=== PATIENT | female | born 1965 | race Two or more races ===

== ENCOUNTER 2020-02-08 12:28 | Inpatient (IN) | payer MEDICAID, OTHER ==
[~2020-02-08] VITALS: Ht 160 cm; Wt 93.6 kg
[~2020-02-08 12:28] MED LIST: BACL10TA PO; BENA20TA14 PO; TRAZ50TA2 PO
[2020-02-08] MEDS ORDERED: SODIUM CHLORIDE 0.9% 1,000 ML IV ONE ×2 (12:33)
[2020-02-08] MEDS ORDERED: DexAMETHasone SOD PHOS 10MG/1ML VIAL INJ IV ONE (12:45)
[2020-02-08] MEDS ORDERED: DOXYCYCLINE 100 MG TAB/CAP PO ONE (12:45)
[2020-02-08 14:10] LABS: Urine Bacteria FEW /hpf (None Seen); Urine Blood 1+ /uL (Negative); Urine Hyaline Cast MANY /lpf (0 - 2); Urine Mucus MODERATE (None Seen); Urine Specific Gravity 1.026 (1.001-1.035); Urine WBC 32 /hpf (0 - 5)
[2020-02-08] MEDS ORDERED: KETOROLAC TROMETH 30 MG/ML 1ML VIAL IV ONE (14:15)
[2020-02-08] MEDS ORDERED: ONDANSETRON HCL 4 MG/2 ML VIAL IV ONE (14:15)
[2020-02-08 15:06] LABS: Alanine Aminotransferase 35 U/L (13-56); Albumin 3.8 g/dL (3.4-5.0); Anion Gap 7 (5-15); Aspartate Aminotransferase 33 U/L (15-37); Blood Urea Nitrogen 13 mg/dL (7-18); Calcium 8.7 mg/dL (8.5-10.1); Carbon Dioxide 25 mmol/L (21-32); Chloride 109 mmol/L (98-107); GFR African American 95 mL/min; GFR Non-African American 78 mL/min; Glucose 83 mg/dL (74-106); Potassium 3.5 mmol/L (3.5-5.1); Sodium 141 mmol/L (136-145)
[2020-02-08 15:12] LABS: Alkaline Phosphatase 73 U/L (45-117); Bilirubin, Total 0.5 mg/dL (0.2-1.0); Total Protein 8.8 g/dL (6.4-8.2)
[2020-02-08 15:14] LABS: Basophils # (auto) 0 10 ^3/uL (0-0.2); CRP High Sensitivity 0.7 mg/dL (< 0.3); Eosinophils # (auto) 0.1 10 ^3/uL (0-0.8); Eosinophils % (auto) 1.4 % (0.0-7.0); Hematocrit 48.6 % (36.0-46.0); Hemoglobin 15.8 g/dL (12.2-16.2); Lymphocytes # (auto) 0.9 10 ^3/uL (0.4-5.4); Lymphocytes % (auto) 21.5 % (10.0-50.0); Mean Corpuscular Hemoglobin 28.4 pg (28.0-32.0); Mean Corpuscular Hgb Conc. 32.5 g/dL (32.0-36.0); Mean Corpuscular Volume 87.4 fL (80.0-100.0); Monocytes # (auto) 0.4 10 ^3/uL (0-1.3); Monocytes % (auto) 9.6 % (0.0-12.0); Neutrophils # (auto) 2.7 10 ^3/uL (1.6-8.6); Neutrophils % (auto) 67.5 % (37.0-80.0); Nucleated Red Blood Cells % 0.6 %; Platelet Count (auto) 92 10^3/uL (140-450); Red Blood Cells 5.56 10^6/uL (4.0-5.20)
[2020-02-08] MEDS ORDERED: cefTRIAXone 1GM/50ML D5W 50 ML IV ONE ×2 (15:15→15:16)
[2020-02-08 15:37] LABS: INR 1.18 (0.9-1.15); Partial Thromboplastin Time 23.4 sec (23.0-31.2)
[2020-02-08] MEDS ORDERED: TEMAZEPAM 15 MG CAP PO PRN (15:45)
[2020-02-08] MEDS ORDERED: NITROGLYCERIN 0.4 MG SL TAB SL PRN (15:45)
[2020-02-08] MEDS ORDERED: ACETAMINOPHEN 325 MG TAB PO PRN (15:45)
[2020-02-08] MEDS ORDERED: HYDROcodone-ACET 5/325MG TAB PO PRN (15:45)
[2020-02-08] MEDS ORDERED: DOCUSATE SOD 100 MG CAP PO PRN (15:45)
[2020-02-08] MEDS ORDERED: OME20T PO (17:27)
[2020-02-08 17:33] VITALS: BP 114/62
[2020-02-08] MEDS: ONDANSETRON HCL 4 MG/2 ML VIAL IV PRN ×2 (17:33→22:00)
[2020-02-08] MEDS: MORPHINE SULF INJ 2 MG/ML SYRINGE 1ML IV PRN ×2 (17:34→22:00)
[2020-02-08] MEDS ORDERED: CHOL20007 PO (18:23)
[2020-02-08] MEDS ORDERED: CALC-386 OR (18:24)
[2020-02-08] MEDS ORDERED: CYAN1SUB5 SL (18:24)
[2020-02-08] MEDS ORDERED: MULT-1018 PO (18:24)
[2020-02-08 20:01] LABS: Basophils # (auto) 0 10 ^3/uL (0-0.2); Basophils % (auto) 0.2 % (0.0-2.0); Eosinophils # (auto) 0 10 ^3/uL (0-0.8); Hematocrit 47.4 % (36.0-46.0); Hemoglobin 15.2 g/dL (12.2-16.2); Lymphocytes # (auto) 0.3 10 ^3/uL (0.4-5.4); Lymphocytes % (auto) 17.1 % (10.0-50.0); Mean Corpuscular Hemoglobin 28.1 pg (28.0-32.0); Mean Corpuscular Hgb Conc. 32.2 g/dL (32.0-36.0); Mean Corpuscular Volume 87.4 fL (80.0-100.0); Monocytes # (auto) 0 10 ^3/uL (0-1.3); Monocytes % (auto) 1.8 % (0.0-12.0); Neutrophils # (auto) 1.6 10 ^3/uL (1.6-8.6); Neutrophils % (auto) 80.9 % (37.0-80.0); Nucleated Red Blood Cells % 0.2 %; Platelet Count (auto) 68 10^3/uL (140-450); Red Blood Cells 5.42 10^6/uL (4.0-5.20); Red Cell Distribution Width 14.3 % (11.8-14.3)
[2020-02-08 20:03] LABS: Albumin 3.4 g/dL (3.4-5.0); Calcium 8.7 mg/dL (8.5-10.1)
[2020-02-08 20:07] LABS: BUN/Creatinine Ratio 20.6; Bilirubin, Total 0.4 mg/dL (0.2-1.0); CRP High Sensitivity 0.71 mg/dL (< 0.3); Total Protein 7.8 g/dL (6.4-8.2)
[2020-02-08 22:00] VITALS: BP 103/64
[2020-02-08] MEDS: BACLOFEN 10 MG TAB PO SCH (22:00)
[2020-02-08] MEDS: traZODone HCL 50 MG TAB PO SCH (22:00)
[2020-02-08] MEDS: DOXYCYCLINE 100 MG TAB/CAP PO SCH (22:22)
[2020-02-09] MEDS: MORPHINE SULF INJ 2 MG/ML SYRINGE 1ML IV PRN ×4 (04:32→21:34)
[2020-02-09] MEDS: ONDANSETRON HCL 4 MG/2 ML VIAL IV PRN ×5 (04:32→21:34)
[2020-02-09 04:42] VITALS: BP 113/76
[2020-02-09] MEDS: BACLOFEN 10 MG TAB PO SCH ×2 (06:00→14:00)
[2020-02-09] MEDS: PANTOPRAZOLE 40 MG TAB PO SCH (08:32)
[2020-02-09 09:00] VITALS: BP 116/72
[2020-02-09] MEDS ORDERED: cefTRIAXone W LIDOCAINE 1 GM IM IM SCH (10:00)
[2020-02-09] MEDS: DOXYCYCLINE 100 MG TAB/CAP PO SCH (10:00)
[2020-02-09] MEDS ORDERED: BENAZEPRIL HCL 10 MG TAB PO SCH (10:00)
[2020-02-09] MEDS ORDERED: ENOXAPARIN SOD 30 MG/0.3 ML SYRINGE SC SCH (10:00)
[2020-02-09] MEDS: CHOLECALCIFEROL (VITD3) 1,000UNIT=25mCg TAB PO SCH (10:04)
[2020-02-09] MEDS: cefTRIAXone 1GM/50ML D5W 50 ML IV SCH (10:04)
[2020-02-09] MEDS: ZINC SULFATE 220mg CAP or TAB PO SCH (10:04)
[2020-02-09 11:11] LABS: Basophils # (auto) 0 10 ^3/uL (0-0.2); Basophils % (auto) 0.3 % (0.0-2.0); Eosinophils # (auto) 0 10 ^3/uL (0-0.8); Eosinophils % (auto) 0.3 % (0.0-7.0); Hematocrit 45.3 % (36.0-46.0); Hemoglobin 14.4 g/dL (12.2-16.2); Lymphocytes # (auto) 0.9 10 ^3/uL (0.4-5.4); Lymphocytes % (auto) 40.2 % (10.0-50.0); Mean Corpuscular Hgb Conc. 31.9 g/dL (32.0-36.0); Mean Corpuscular Volume 87.7 fL (80.0-100.0); Monocytes # (auto) 0.3 10 ^3/uL (0-1.3); Monocytes % (auto) 11.6 % (0.0-12.0); Neutrophils # (auto) 1.1 10 ^3/uL (1.6-8.6); Neutrophils % (auto) 47.6 % (37.0-80.0); Nucleated Red Blood Cells % 0.4 %; Platelet Count (auto) 75 10^3/uL (140-450); Red Blood Cells 5.17 10^6/uL (4.0-5.20); Red Cell Distribution Width 14.4 % (11.8-14.3); White Blood Cell 2.2 10^3/uL (4.4-10.8)
[2020-02-09 11:20] LABS: Albumin 3.3 g/dL (3.4-5.0); Calcium 8.9 mg/dL (8.5-10.1); Magnesium 1.9 mg/dL (1.6-2.6); Potassium 3.8 mmol/L (3.5-5.1)
[2020-02-09 11:26] LABS: BUN/Creatinine Ratio 27.4; Bilirubin, Total 0.4 mg/dL (0.2-1.0); CRP High Sensitivity 0.75 mg/dL (< 0.3); Total Protein 7.5 g/dL (6.4-8.2)
[2020-02-09] MEDS ORDERED: ASCORBIC ACID 500 MG TAB PO ONE (12:30)
[2020-02-09] MEDS ORDERED: BUDESONIDE (INHALATION) 0.5 MG/2 ML NEB NEB ONE (12:30)
[2020-02-09 12:36] VITALS: BP 108/69
[2020-02-09] MEDS ORDERED: PATIENTS OWN MEDICATION (PULMICORT 360 MCG) IN ONE (12:45)
[2020-02-09] MEDS: BUDESONIDE (INHALATION) 180 MCG IH IN SCH ×2 (14:24→21:05)
[2020-02-09] MEDS: ALBUTEROL SULF HFA 90MCG INH 200DOSE IN SCH ×2 (14:24→21:04)
[2020-02-09 16:38] VITALS: BP 103/62
[2020-02-09 17:59] VITALS: BP 103/62
[2020-02-09] MEDS: traZODone HCL 50 MG TAB PO SCH (21:33)
[2020-02-09 22:00] VITALS: BP 118/81
[2020-02-09] MEDS ORDERED: PULMOCORT INH SCH (22:00)
[2020-02-09] MEDS ORDERED: BUDESONIDE (INHALATION) 0.5 MG/2 ML NEB NEB SCH (22:00)
[2020-02-10] MEDS: MORPHINE SULF INJ 2 MG/ML SYRINGE 1ML IV PRN ×4 (03:02→22:22)
[2020-02-10] MEDS: ONDANSETRON HCL 4 MG/2 ML VIAL IV PRN ×5 (03:02→22:22)
[2020-02-10 05:00] VITALS: BP 123/78
[2020-02-10 07:05] LABS: Basophils # (auto) 0 10 ^3/uL (0-0.2); Basophils % (auto) 0.6 % (0.0-2.0); Eosinophils # (auto) 0 10 ^3/uL (0-0.8); Eosinophils % (auto) 0.6 % (0.0-7.0); Hematocrit 43.6 % (36.0-46.0); Hemoglobin 14.1 g/dL (12.2-16.2); Lymphocytes # (auto) 1.3 10 ^3/uL (0.4-5.4); Lymphocytes % (auto) 46.4 % (10.0-50.0); Mean Corpuscular Hemoglobin 28.5 pg (28.0-32.0); Mean Corpuscular Hgb Conc. 32.5 g/dL (32.0-36.0); Mean Corpuscular Volume 87.7 fL (80.0-100.0); Monocytes # (auto) 0.2 10 ^3/uL (0-1.3); Monocytes % (auto) 8.4 % (0.0-12.0); Neutrophils # (auto) 1.2 10 ^3/uL (1.6-8.6); Nucleated Red Blood Cells % 0.6 %; Platelet Count (auto) 68 10^3/uL (140-450); Red Blood Cells 4.96 10^6/uL (4.0-5.20); Red Cell Distribution Width 14.6 % (11.8-14.3); White Blood Cell 2.8 10^3/uL (4.4-10.8)
[2020-02-10] MEDS: ALBUTEROL SULF HFA 90MCG INH 200DOSE IN SCH ×3 (07:14→22:06)
[2020-02-10] MEDS: BUDESONIDE (INHALATION) 180 MCG IH IN SCH ×2 (07:15→22:06)
[2020-02-10 07:20] LABS: Calcium 8.1 mg/dL (8.5-10.1); Potassium 3.8 mmol/L (3.5-5.1)
[2020-02-10 07:33] LABS: BUN/Creatinine Ratio 27.9
[2020-02-10] MEDS: PANTOPRAZOLE 40 MG TAB PO SCH (07:35)
[2020-02-10 09:00] VITALS: BP 112/69
[2020-02-10] MEDS: cefTRIAXone 1GM/50ML D5W 50 ML IV SCH (10:03)
[2020-02-10] MEDS: DexAMETHasone SOD PHOS 10MG/1ML VIAL INJ IV SCH (10:03)
[2020-02-10] MEDS: ASCORBIC ACID 500 MG TAB PO SCH (10:03)
[2020-02-10] MEDS: CHOLECALCIFEROL (VITD3) 1,000UNIT=25mCg TAB PO SCH (10:03)
[2020-02-10] MEDS: ZINC SULFATE 220mg CAP or TAB PO SCH (10:04)
[2020-02-10 12:00] VITALS: BP 122/70
[2020-02-10] MEDS ORDERED: KETOROLAC TROMETH 30 MG/ML 1ML VIAL IV ONE (12:00)
[2020-02-10 17:00] VITALS: BP 111/72
[2020-02-10 22:00] VITALS: BP 98/60
[2020-02-10] MEDS: traZODone HCL 50 MG TAB PO SCH (22:00)
[2020-02-11] MEDS: ONDANSETRON HCL 4 MG/2 ML VIAL IV PRN ×4 (03:57→18:12)
[2020-02-11] MEDS: MORPHINE SULF INJ 2 MG/ML SYRINGE 1ML IV PRN ×4 (03:57→18:12)
[2020-02-11 05:00] VITALS: BP 132/75
[2020-02-11] MEDS: ALBUTEROL SULF HFA 90MCG INH 200DOSE IN SCH ×4 (07:06→21:33)
[2020-02-11] MEDS: BUDESONIDE (INHALATION) 180 MCG IH IN SCH ×2 (07:06→21:33)
[2020-02-11 07:33] LABS: Basophils # (auto) 0 10 ^3/uL (0-0.2); Basophils % (auto) 0.1 % (0.0-2.0); Eosinophils # (auto) 0 10 ^3/uL (0-0.8); Hematocrit 41.3 % (36.0-46.0); Hemoglobin 13.6 g/dL (12.2-16.2); Lymphocytes # (auto) 0.8 10 ^3/uL (0.4-5.4); Lymphocytes % (auto) 21.9 % (10.0-50.0); Mean Corpuscular Hemoglobin 28.6 pg (28.0-32.0); Mean Corpuscular Volume 86.7 fL (80.0-100.0); Monocytes # (auto) 0.2 10 ^3/uL (0-1.3); Monocytes % (auto) 6.4 % (0.0-12.0); Neutrophils # (auto) 2.5 10 ^3/uL (1.6-8.6); Neutrophils % (auto) 71.6 % (37.0-80.0); Nucleated Red Blood Cells % 0.2 %; Platelet Count (auto) 67 10^3/uL (140-450); Red Blood Cells 4.76 10^6/uL (4.0-5.20); Red Cell Distribution Width 14.1 % (11.8-14.3); White Blood Cell 3.5 10^3/uL (4.4-10.8)
[2020-02-11] MEDS: cefTRIAXone 1GM/50ML D5W 50 ML IV SCH (08:53)
[2020-02-11 09:17] VITALS: BP 113/74
[2020-02-11] MEDS: ZINC SULFATE 220mg CAP or TAB PO SCH (09:35)
[2020-02-11] MEDS: PANTOPRAZOLE 40 MG TAB PO SCH (09:35)
[2020-02-11] MEDS: DexAMETHasone SOD PHOS 10MG/1ML VIAL INJ IV SCH (09:35)
[2020-02-11] MEDS: ASCORBIC ACID 500 MG TAB PO SCH (09:35)
[2020-02-11] MEDS: CHOLECALCIFEROL (VITD3) 1,000UNIT=25mCg TAB PO SCH (09:35)
[2020-02-11 13:19] VITALS: BP 118/76
[2020-02-11] MEDS ORDERED: PANTOPRAZOLE 40 MG/10 ML VIAL INJ IV ONE (14:30)
[2020-02-11] MEDS ORDERED: PHENAZOPYRIDINE HCL 100 MG TAB PO ONE (14:30)
[2020-02-11 16:58] VITALS: BP 105/69
[2020-02-11] MEDS: PHENAZOPYRIDINE HCL 100 MG TAB PO SCH (18:11)
[2020-02-11 20:00] VITALS: BP 102/53
[2020-02-11] MEDS: traZODone HCL 50 MG TAB PO SCH (21:46)
[2020-02-11 21:51] VITALS: BP 102/53
[2020-02-12 05:29] VITALS: BP 93/60
[2020-02-12 06:00] LABS: Basophils # (auto) 0 10 ^3/uL (0-0.2); Basophils % (auto) 0.1 % (0.0-2.0); Eosinophils # (auto) 0 10 ^3/uL (0-0.8); Hemoglobin 12.8 g/dL (12.2-16.2); Lymphocytes # (auto) 0.2 10 ^3/uL (0.4-5.4); Lymphocytes % (auto) 5.5 % (10.0-50.0); Mean Corpuscular Hgb Conc. 32.1 g/dL (32.0-36.0); Mean Corpuscular Volume 87.2 fL (80.0-100.0); Monocytes # (auto) 0.1 10 ^3/uL (0-1.3); Monocytes % (auto) 2.2 % (0.0-12.0); Neutrophils % (auto) 92.2 % (37.0-80.0); Nucleated Red Blood Cells % 0.1 %; Platelet Count (auto) 71 10^3/uL (140-450); Red Blood Cells 4.59 10^6/uL (4.0-5.20); Red Cell Distribution Width 14.2 % (11.8-14.3); White Blood Cell 3.3 10^3/uL (4.4-10.8)
[2020-02-12 06:18] LABS: Albumin 2.7 g/dL (3.4-5.0); Calcium 7.7 mg/dL (8.5-10.1); Potassium 3.6 mmol/L (3.5-5.1)
[2020-02-12 06:21] LABS: BUN/Creatinine Ratio 17.9; Bilirubin, Total 0.3 mg/dL (0.2-1.0); Total Protein 6.2 g/dL (6.4-8.2)
[2020-02-12] MEDS: BUDESONIDE (INHALATION) 180 MCG IH IN SCH ×2 (07:00→22:35)
[2020-02-12] MEDS: ALBUTEROL SULF HFA 90MCG INH 200DOSE IN SCH ×3 (07:00→22:35)
[2020-02-12 08:50] VITALS: BP 103/63
[2020-02-12] MEDS: PHENAZOPYRIDINE HCL 100 MG TAB PO SCH ×3 (08:50→17:35)
[2020-02-12] MEDS: cefTRIAXone 1GM/50ML D5W 50 ML IV SCH (08:51)
[2020-02-12] MEDS: DexAMETHasone SOD PHOS 10MG/1ML VIAL INJ IV SCH (08:52)
[2020-02-12] MEDS: PANTOPRAZOLE 40 MG/10 ML VIAL INJ IV SCH (08:53)
[2020-02-12] MEDS: ZINC SULFATE 220mg CAP or TAB PO SCH (08:54)
[2020-02-12] MEDS: CHOLECALCIFEROL (VITD3) 1,000UNIT=25mCg TAB PO SCH (08:54)
[2020-02-12] MEDS: ASCORBIC ACID 500 MG TAB PO SCH (08:54)
[2020-02-12] MEDS: MORPHINE SULF INJ 2 MG/ML SYRINGE 1ML IV PRN ×4 (08:58→21:30)
[2020-02-12] MEDS: ONDANSETRON HCL 4 MG/2 ML VIAL IV PRN ×4 (08:58→21:30)
[2020-02-12 13:00] VITALS: BP 123/65
[2020-02-12 16:55] VITALS: BP 107/71
[2020-02-12 20:22] VITALS: BP 107/71
[2020-02-12 21:45] VITALS: BP 113/69
[2020-02-12] MEDS: traZODone HCL 50 MG TAB PO SCH (22:00)
[2020-02-13] MEDS: ONDANSETRON HCL 4 MG/2 ML VIAL IV PRN ×4 (03:15→18:30)
[2020-02-13] MEDS: MORPHINE SULF INJ 2 MG/ML SYRINGE 1ML IV PRN ×2 (03:15→08:49)
[2020-02-13 05:00] VITALS: BP 126/77
[2020-02-13 06:21] LABS: Basophils # (auto) 0 10 ^3/uL (0-0.2); Basophils % (auto) 0.1 % (0.0-2.0); Eosinophils # (auto) 0 10 ^3/uL (0-0.8); Hemoglobin 14.3 g/dL (12.2-16.2); Monocytes # (auto) 0.2 10 ^3/uL (0-1.3)
[2020-02-13 06:23] LABS: Eosinophils % (auto) 0.1 % (0.0-7.0); Lymphocytes # (auto) 0.6 10 ^3/uL (0.4-5.4); Lymphocytes % (auto) 22.2 % (10.0-50.0); Mean Corpuscular Hemoglobin 28.5 pg (28.0-32.0); Mean Corpuscular Hgb Conc. 32.4 g/dL (32.0-36.0); Mean Corpuscular Volume 87.8 fL (80.0-100.0); Monocytes % (auto) 6.7 % (0.0-12.0); Neutrophils % (auto) 70.9 % (37.0-80.0); Nucleated Red Blood Cells % 0.2 %; Platelet Count (auto) 60 10^3/uL (140-450); Red Cell Distribution Width 14.7 % (11.8-14.3); White Blood Cell 2.8 10^3/uL (4.4-10.8)
[2020-02-13] MEDS: ALBUTEROL SULF HFA 90MCG INH 200DOSE IN SCH ×3 (06:41→22:35)
[2020-02-13] MEDS: BUDESONIDE (INHALATION) 180 MCG IH IN SCH ×2 (06:42→22:36)
[2020-02-13 06:47] LABS: Calcium 8.2 mg/dL (8.5-10.1); Chloride 110 mmol/L (98-107); Potassium 3.5 mmol/L (3.5-5.1); Sodium 141 mmol/L (136-145)
[2020-02-13 06:51] LABS: Anion Gap 7 (5-15); BUN/Creatinine Ratio 24.1; Blood Urea Nitrogen 13 mg/dL (7-18); Carbon Dioxide 24 mmol/L (21-32); GFR African American 151 mL/min; GFR Non-African American 125 mL/min; Glucose 79 mg/dL (74-106)
[2020-02-13] MEDS: DexAMETHasone SOD PHOS 10MG/1ML VIAL INJ IV SCH (08:47)
[2020-02-13] MEDS: PHENAZOPYRIDINE HCL 100 MG TAB PO SCH ×3 (08:47→18:07)
[2020-02-13] MEDS: cefTRIAXone 1GM/50ML D5W 50 ML IV SCH (08:47)
[2020-02-13] MEDS: ZINC SULFATE 220mg CAP or TAB PO SCH (08:48)
[2020-02-13] MEDS: CHOLECALCIFEROL (VITD3) 1,000UNIT=25mCg TAB PO SCH (08:48)
[2020-02-13] MEDS: PANTOPRAZOLE 40 MG/10 ML VIAL INJ IV SCH (08:48)
[2020-02-13] MEDS: ASCORBIC ACID 500 MG TAB PO SCH (08:48)
[2020-02-13 08:57] VITALS: BP 126/74
[2020-02-13 13:14] VITALS: BP 115/65
[2020-02-13] MEDS: KETOROLAC TROMETH 30 MG/ML 1ML VIAL IV PRN ×2 (15:07→21:07)
[2020-02-13 17:09] VITALS: BP 106/71
[2020-02-13] MEDS: traZODone HCL 50 MG TAB PO SCH (21:07)
[2020-02-13 22:00] VITALS: BP 111/72
[2020-02-14] MEDS: ONDANSETRON HCL 4 MG/2 ML VIAL IV PRN (04:22)
[2020-02-14] MEDS: KETOROLAC TROMETH 30 MG/ML 1ML VIAL IV PRN ×2 (04:23→10:58)
[2020-02-14 05:00] VITALS: BP 125/84
[2020-02-14] MEDS: BUDESONIDE (INHALATION) 180 MCG IH IN SCH (06:51)
[2020-02-14] MEDS: ALBUTEROL SULF HFA 90MCG INH 200DOSE IN SCH ×2 (06:51→14:21)
[2020-02-14 07:33] LABS: Basophils # (auto) 0 10 ^3/uL (0-0.2); Basophils % (auto) 0.1 % (0.0-2.0); Eosinophils # (auto) 0 10 ^3/uL (0-0.8); Eosinophils % (auto) 0.1 % (0.0-7.0); Hematocrit 41.4 % (36.0-46.0); Hemoglobin 13.8 g/dL (12.2-16.2); Lymphocytes # (auto) 0.5 10 ^3/uL (0.4-5.4); Lymphocytes % (auto) 22.5 % (10.0-50.0); Mean Corpuscular Hemoglobin 28.5 pg (28.0-32.0); Mean Corpuscular Hgb Conc. 33.2 g/dL (32.0-36.0); Mean Corpuscular Volume 85.7 fL (80.0-100.0); Monocytes # (auto) 0.3 10 ^3/uL (0-1.3); Monocytes % (auto) 13.1 % (0.0-12.0); Neutrophils # (auto) 1.4 10 ^3/uL (1.6-8.6); Neutrophils % (auto) 64.2 % (37.0-80.0); Nucleated Red Blood Cells % 0.4 %; Platelet Count (auto) 77 10^3/uL (140-450); Red Blood Cells 4.83 10^6/uL (4.0-5.20); Red Cell Distribution Width 14.3 % (11.8-14.3); White Blood Cell 2.2 10^3/uL (4.4-10.8)
[2020-02-14 07:52] LABS: Calcium 8.5 mg/dL (8.5-10.1); Potassium 3.4 mmol/L (3.5-5.1)
[2020-02-14 07:55] LABS: BUN/Creatinine Ratio 24.6
[2020-02-14] MEDS: cefTRIAXone 1GM/50ML D5W 50 ML IV SCH (08:38)
[2020-02-14] MEDS: PHENAZOPYRIDINE HCL 100 MG TAB PO SCH ×2 (08:38→12:00)
[2020-02-14] MEDS: ZINC SULFATE 220mg CAP or TAB PO SCH (08:38)
[2020-02-14] MEDS: PANTOPRAZOLE 40 MG/10 ML VIAL INJ IV SCH (08:38)
[2020-02-14] MEDS: DexAMETHasone SOD PHOS 10MG/1ML VIAL INJ IV SCH (08:38)
[2020-02-14] MEDS: CHOLECALCIFEROL (VITD3) 1,000UNIT=25mCg TAB PO SCH (08:39)
[2020-02-14] MEDS: ASCORBIC ACID 500 MG TAB PO SCH (08:39)
[2020-02-14 09:00] VITALS: BP 120/81
[2020-02-14 13:00] VITALS: BP 106/67
[2020-02-14 17:00] VITALS: BP 123/78
== END 2020-02-14 17:08 | disposition home or self-care (01) | DRG 177 ==
LOC: ER 12:28 → OVERFLOW 12:29 → EAST 17:00
PROVIDERS: ATTEND Internal Medicine
DX: U07.1 COVID-19 (principal); J12.89 Other viral pneumonia; N12 Tubulo-interstitial nephritis, not specified as acute or chronic; D69.6 Thrombocytopenia, unspecified; E66.9 Obesity, unspecified; I10 Essential (primary) hypertension; Z79.899 Other long term (current) drug therapy; Z82.49 Family history of ischemic heart disease and other diseases of the circulatory system; Z82.5 Family history of asthma and other chronic lower respiratory diseases; Z83.3 Family history of diabetes mellitus; Z87.442 Personal history of urinary calculi; Z98.84 Bariatric surgery status; Z68.28 Body mass index [BMI] 28.0-28.9, adult
CPT/HCPCS: 36415; 71045; 74176; 80048; 80053; 81001; 82728; 83605; 83615; 83735; 84443; 84484; 85025; 85379; 85610; 85730; 86141; 87086; 94640; C9113; G0378; J0696; J1100; J1885; J2405

== ENCOUNTER 2020-02-24 09:06 | Emergency (ER) | payer OTHER ==
[~2020-02-24] VITALS: Ht 160 cm; Wt 90.7 kg
[~2020-02-24 09:06] MED LIST changes: -BACL10TA PO; -BENA20TA14 PO; +CALC-386 OR; +CHOL20007 PO; +CYAN1SUB5 SL; +MULT-1018 PO; +OME20T PO; -TRAZ50TA2 PO
[2020-02-24 11:06] LABS: Urine Bacteria NONE SEEN /hpf (None Seen); Urine Blood 2+ /uL (Negative); Urine Hyaline Cast MANY /lpf (0 - 2); Urine Mucus MANY (None Seen); Urine Specific Gravity 1.032 (1.001-1.035); Urine WBC 8 /hpf (0 - 5)
[2020-02-24] MEDS ORDERED: ONDANSETRON HCL 4 MG/2 ML VIAL IV ONE (11:30)
[2020-02-24] MEDS ORDERED: SODIUM CHLORIDE 0.9% 1,000 ML IV ONE (11:30)
[2020-02-24 14:10] VITALS: BP 118/79
== END 2020-02-24 11:16 | disposition home or self-care (01) ==
LOC: ER 09:06
DX: E86.0 Dehydration (principal); F41.9 Anxiety disorder, unspecified; I10 Essential (primary) hypertension; Z87.442 Personal history of urinary calculi
CPT/HCPCS: 71045; 81001; 96361; 96374; 99284; J2405; J7030

== ENCOUNTER 2021-03-21 11:07 | Inpatient (IN) | payer OTHER ==
[~2021-03-21] VITALS: Ht 153 cm; Wt 66.8 kg
[2021-03-21 11:54] LABS: Hemoglobin 12.5 g/dL (12.2-16.2); Mean Corpuscular Hgb Conc. 32.9 g/dL (32.0-36.0); Mean Corpuscular Volume 91.5 fL (80.0-100.0); Red Blood Cells 4.15 10^6/uL (4.0-5.20); Red Cell Distribution Width 14.3 % (11.8-14.3); White Blood Cell 3.3 10^3/uL (4.4-10.8)
[2021-03-21 12:01] LABS: Basophils % (manual) 0 (0.0-2.0); Blast Cells 0; Metamyelocytes % 0; Myelocytes % 0; Promyelocytes % 0
[2021-03-21 12:09] LABS: Albumin 3.1 g/dL (3.4-5.0); Calcium 9.3 mg/dL (8.5-10.1); Potassium 3.4 mmol/L (3.5-5.1)
[2021-03-21 12:12] LABS: BUN/Creatinine Ratio 24.3; Bilirubin, Total 0.6 mg/dL (0.2-1.0); Total Protein 8.3 g/dL (6.4-8.2)
[2021-03-21] MEDS ORDERED: ONDANSETRON HCL 4 MG/2 ML VIAL IV ONE (12:15)
[2021-03-21] MEDS ORDERED: MORPHINE SULFATE 4 MG/ML SYR/VIAL IV ONE ×3 (12:15→18:15)
[2021-03-21] MEDS ORDERED: SODIUM CHLORIDE 0.9% 1,000 ML IV ONE (12:15)
[2021-03-21] MEDS ORDERED: IOHEXOL 300 MG/ML 100ML BOTTLE IJ ONE (12:28)
[2021-03-21 12:54] LABS: Band Neutrophils % (manual) 6; Lymphocytes % (manual) 29 (10.0-50.0)
[2021-03-21 12:55] LABS: Eosinophils % (manual) 3 (0-7); Monocytes % (manual) 15 (0-12); Reactive Lymphocytes 3
[2021-03-21] MEDS ORDERED: ACETAMINOPHEN 500 MG TAB PO PRN (19:45)
[2021-03-21] MEDS ORDERED: DOCUSATE SOD 100 MG CAP PO PRN (19:45)
[2021-03-21] MEDS ORDERED: NITROGLYCERIN 0.4 MG SL TAB SL PRN (19:45)
[2021-03-21] MEDS ORDERED: FLUCONAZOLE 100 MG TAB PO ONE (19:45)
[2021-03-21] MEDS ORDERED: POLYETHYLENE GLYCOL 17 GM PWDR PO ONE (19:45)
[2021-03-21] MEDS ORDERED: HYDROcodone-ACET 5/325MG TAB PO PRN (19:45)
[2021-03-21] MEDS ORDERED: MORPHINE SULFATE INJECTION 2 MG/ML SYRG IV PRN (19:45)
[2021-03-21] MEDS ORDERED: SOD CHL 0.9%/ KCL 40MEQ 1,000 ML IV ONE (19:45)
[2021-03-21 22:00] VITALS: BP 100/64
[2021-03-21 22:05] VITALS: BP 100/64
[2021-03-21] MEDS: metroNIDAZOLE 500MG/100ML 100 ML IV SCH (22:37)
[2021-03-21] MEDS: MORPHINE SULFATE INJECTION 2 MG/ML SYRG IV PRN (22:37)
[2021-03-22 05:00] VITALS: BP 107/73
[2021-03-22] MEDS: metroNIDAZOLE 500MG/100ML 100 ML IV SCH ×3 (05:07→21:36)
[2021-03-22] MEDS: MORPHINE SULFATE INJECTION 2 MG/ML SYRG IV PRN ×3 (05:08→17:53)
[2021-03-22] MEDS: ONDANSETRON HCL 4 MG/2 ML VIAL IV PRN (05:17)
[2021-03-22 08:29] LABS: Basophils # (auto) 0 10 ^3/uL (0-0.2); Basophils % (auto) 0.9 % (0.0-2.0); Eosinophils # (auto) 0.1 10 ^3/uL (0-0.8); Eosinophils % (auto) 3.1 % (0.0-7.0); Hematocrit 33.8 % (36.0-46.0); Hemoglobin 11.1 g/dL (12.2-16.2); Lymphocytes # (auto) 0.8 10 ^3/uL (0.4-5.4); Lymphocytes % (auto) 23.3 % (10.0-50.0); Mean Corpuscular Hemoglobin 30.3 pg (28.0-32.0); Mean Corpuscular Hgb Conc. 32.9 g/dL (32.0-36.0); Monocytes # (auto) 0.6 10 ^3/uL (0-1.3); Monocytes % (auto) 16.6 % (0.0-12.0); Neutrophils % (auto) 56.1 % (37.0-80.0); Nucleated Red Blood Cells % 0.1 %; Red Blood Cells 3.67 10^6/uL (4.0-5.20); Red Cell Distribution Width 14.8 % (11.8-14.3); White Blood Cell 3.5 10^3/uL (4.4-10.8)
[2021-03-22 08:33] LABS: Albumin 2.4 g/dL (3.4-5.0); Calcium 8.8 mg/dL (8.5-10.1); Potassium 4.2 mmol/L (3.5-5.1)
[2021-03-22 08:35] LABS: BUN/Creatinine Ratio 25.5
[2021-03-22 08:41] LABS: Bilirubin, Total 0.3 mg/dL (0.2-1.0); Total Protein 6.8 g/dL (6.4-8.2)
[2021-03-22 09:00] VITALS: BP 112/67
[2021-03-22] MEDS: FLUCONAZOLE 100 MG TAB PO SCH (10:30)
[2021-03-22] MEDS: levoFLOXacin 500MG 100 ML IV SCH (10:30)
[2021-03-22 12:30] VITALS: BP 109/73
[2021-03-22 16:24] LABS: Urine Bacteria NONE SEEN /hpf (None Seen); Urine Blood TRACE /uL (Negative); Urine Mucus FEW (None Seen); Urine Specific Gravity 1.022 (1.001-1.035); Urine WBC 1 /hpf (0 - 5)
[2021-03-22 17:00] VITALS: BP 115/76
[2021-03-22] MEDS: LACTULOSE 20Gm/30ML SOLN PO PRN (17:51)
[2021-03-22] MEDS: DOCUSATE SOD 100 MG CAP PO SCH (21:36)
[2021-03-22 22:00] VITALS: BP_SYST 126; BP_SYST 142; BP_DIAS 75; BP_DIAS 84
[2021-03-23] MEDS: MORPHINE SULFATE INJECTION 2 MG/ML SYRG IV PRN ×3 (01:37→18:14)
[2021-03-23 05:00] VITALS: BP 104/76
[2021-03-23 05:34] LABS: Basophils # (auto) 0 10 ^3/uL (0-0.2); Basophils % (auto) 1.2 % (0.0-2.0); Eosinophils # (auto) 0.1 10 ^3/uL (0-0.8); Eosinophils % (auto) 3.7 % (0.0-7.0); Hematocrit 34.9 % (36.0-46.0); Hemoglobin 11.5 g/dL (12.2-16.2); Lymphocytes # (auto) 0.7 10 ^3/uL (0.4-5.4); Lymphocytes % (auto) 19.3 % (10.0-50.0); Mean Corpuscular Hemoglobin 29.9 pg (28.0-32.0); Mean Corpuscular Hgb Conc. 32.8 g/dL (32.0-36.0); Mean Corpuscular Volume 91.1 fL (80.0-100.0); Monocytes # (auto) 0.4 10 ^3/uL (0-1.3); Neutrophils # (auto) 2.1 10 ^3/uL (1.6-8.6); Neutrophils % (auto) 62.8 % (37.0-80.0); Red Blood Cells 3.83 10^6/uL (4.0-5.20); White Blood Cell 3.4 10^3/uL (4.4-10.8)
[2021-03-23] MEDS: metroNIDAZOLE 500MG/100ML 100 ML IV SCH ×3 (06:00→21:36)
[2021-03-23] MEDS: LACTULOSE 20Gm/30ML SOLN PO PRN ×2 (06:01→15:19)
[2021-03-23 06:07] LABS: BUN/Creatinine Ratio 12.3; Calcium 8.7 mg/dL (8.5-10.1); Magnesium 2.2 mg/dL (1.6-2.6); Potassium 4.3 mmol/L (3.5-5.1)
[2021-03-23] MEDS: DOCUSATE SOD 100 MG CAP PO SCH ×2 (08:35→21:36)
[2021-03-23] MEDS: FLUCONAZOLE 100 MG TAB PO SCH (08:36)
[2021-03-23] MEDS: levoFLOXacin 500MG 100 ML IV SCH (08:38)
[2021-03-23 09:00] VITALS: BP 111/66
[2021-03-23 12:30] VITALS: BP 123/79
[2021-03-23 17:00] VITALS: BP 120/76
[2021-03-23 22:00] VITALS: BP 100/61
[2021-03-24] MEDS: MORPHINE SULFATE INJECTION 2 MG/ML SYRG IV PRN ×4 (02:02→20:09)
[2021-03-24 05:00] VITALS: BP 111/68
[2021-03-24] MEDS: metroNIDAZOLE 500MG/100ML 100 ML IV SCH ×3 (05:28→22:00)
[2021-03-24 08:15] VITALS: BP 103/68
[2021-03-24 09:00] VITALS: BP 103/68
[2021-03-24] MEDS: levoFLOXacin 500MG 100 ML IV SCH (10:38)
[2021-03-24] MEDS: DOCUSATE SOD 100 MG CAP PO SCH ×2 (10:38→22:00)
[2021-03-24] MEDS: FLUCONAZOLE 100 MG TAB PO SCH (10:38)
[2021-03-24 13:00] VITALS: BP 117/75
[2021-03-24 16:39] VITALS: BP 109/78
[2021-03-24 22:00] VITALS: BP 106/68
[2021-03-25] MEDS: MORPHINE SULFATE INJECTION 2 MG/ML SYRG IV PRN ×4 (02:46→20:37)
[2021-03-25 05:00] VITALS: BP 116/75
[2021-03-25] MEDS: metroNIDAZOLE 500MG/100ML 100 ML IV SCH ×3 (06:15→21:51)
[2021-03-25 08:34] LABS: BUN/Creatinine Ratio 10.4; Calcium 8.5 mg/dL (8.5-10.1); Potassium 4.1 mmol/L (3.5-5.1)
[2021-03-25 09:00] VITALS: BP 101/61
[2021-03-25] MEDS: levoFLOXacin 500MG 100 ML IV SCH (09:34)
[2021-03-25] MEDS: FLUCONAZOLE 100 MG TAB PO SCH (09:34)
[2021-03-25] MEDS: DOCUSATE SOD 100 MG CAP PO SCH ×2 (09:34→21:51)
[2021-03-25 13:00] VITALS: BP 123/78
[2021-03-25] MEDS ORDERED: IOHEXOL 300 MG/ML 100ML BOTTLE IJ ONE (13:07)
[2021-03-25 22:00] VITALS: BP 100/63
[2021-03-26] MEDS: MORPHINE SULFATE INJECTION 2 MG/ML SYRG IV PRN ×2 (02:17→09:14)
[2021-03-26 05:00] VITALS: BP 118/78
[2021-03-26] MEDS: metroNIDAZOLE 500MG/100ML 100 ML IV SCH (06:15)
[2021-03-26 06:44] LABS: Hematocrit 38.1 % (36.0-46.0); Hemoglobin 12.6 g/dL (12.2-16.2); Mean Corpuscular Hemoglobin 30.3 pg (28.0-32.0); Mean Corpuscular Hgb Conc. 33.1 g/dL (32.0-36.0); Mean Corpuscular Volume 91.6 fL (80.0-100.0); Red Blood Cells 4.16 10^6/uL (4.0-5.20); Red Cell Distribution Width 14.5 % (11.8-14.3); White Blood Cell 4.9 10^3/uL (4.4-10.8)
[2021-03-26 06:58] LABS: Calcium 8.5 mg/dL (8.5-10.1); Potassium 4.1 mmol/L (3.5-5.1)
[2021-03-26 07:00] LABS: Basophils % (manual) 0 (0.0-2.0); Blast Cells 0; Promyelocytes % 0; Reactive Lymphocytes 0
[2021-03-26 07:02] LABS: BUN/Creatinine Ratio 12.7; Magnesium 2.5 mg/dL (1.6-2.6)
[2021-03-26 07:56] LABS: Band Neutrophils % (manual) 6; Eosinophils % (manual) 2 (0-7); Lymphocytes % (manual) 36 (10.0-50.0); Metamyelocytes % 1; Monocytes % (manual) 2 (0-12); Myelocytes % 1
[2021-03-26 09:00] VITALS: BP_SYST 108; BP_SYST 133; BP_DIAS 70; BP_DIAS 82
[2021-03-26] MEDS: DOCUSATE SOD 100 MG CAP PO SCH ×2 (09:13→22:13)
[2021-03-26] MEDS: levoFLOXacin 500MG 100 ML IV SCH (09:13)
[2021-03-26] MEDS: ONDANSETRON HCL 4 MG/2 ML VIAL IV PRN (09:14)
[2021-03-26] MEDS ORDERED: HYDROmorphone HCL 2 MG/ML VL IV ONE (10:45)
[2021-03-26] MEDS ORDERED: FLUCONAZOLE 100 MG TAB PO ONE (12:00)
[2021-03-26] MEDS ORDERED: VANCOMYCIN PER PHARMACY 0 MG IV SCH (12:15)
[2021-03-26 13:00] VITALS: BP_SYST 101; BP_SYST 144; BP_DIAS 68; BP_DIAS 90
[2021-03-26] MEDS: VANCOMYCIN 1GM/250ML 250 ML IV SCH ×2 (13:09→16:31)
[2021-03-26] MEDS ORDERED: PIPERACILLIN-TAZOB 3.375GM 100 ML IV SCH (14:00)
[2021-03-26 17:00] VITALS: BP 120/75
[2021-03-26] MEDS: HYDROmorphone HCL 2 MG/ML VL IV PRN ×2 (17:19→22:29)
[2021-03-26] MEDS: PIPERACILLIN-TAZOB 3.375GM 100 ML IV SCH ×2 (17:41→23:29)
[2021-03-26 22:00] VITALS: BP 103/66
[2021-03-27 01:08] LABS: Hematocrit 37.6 % (36.0-46.0); Hemoglobin 12.4 g/dL (12.2-16.2); Mean Corpuscular Hemoglobin 30.3 pg (28.0-32.0); Mean Corpuscular Hgb Conc. 32.9 g/dL (32.0-36.0); Mean Corpuscular Volume 92.1 fL (80.0-100.0); Red Blood Cells 4.08 10^6/uL (4.0-5.20); Red Cell Distribution Width 14.5 % (11.8-14.3); White Blood Cell 5.2 10^3/uL (4.4-10.8)
[2021-03-27 01:12] LABS: Basophils % (manual) 0 (0.0-2.0); Blast Cells 0; Promyelocytes % 0; Reactive Lymphocytes 0
[2021-03-27 01:25] LABS: Band Neutrophils % (manual) 13; Eosinophils % (manual) 1 (0-7); Lymphocytes % (manual) 21 (10.0-50.0); Metamyelocytes % 1; Monocytes % (manual) 11 (0-12); Myelocytes % 4
[2021-03-27] MEDS: HYDROmorphone HCL 2 MG/ML VL IV PRN ×3 (02:32→20:37)
[2021-03-27] MEDS: VANCOMYCIN 1GM/250ML 250 ML IV SCH ×2 (02:33→14:38)
[2021-03-27 05:00] VITALS: BP 109/71
[2021-03-27] MEDS: PIPERACILLIN-TAZOB 3.375GM 100 ML IV SCH ×3 (06:39→23:38)
[2021-03-27] MEDS: ONDANSETRON HCL 4 MG/2 ML VIAL IV PRN (06:40)
[2021-03-27 09:00] VITALS: BP 114/83
[2021-03-27 13:00] VITALS: BP 117/94
[2021-03-27] MEDS: FLUCONAZOLE 100 MG TAB PO SCH (14:37)
[2021-03-27] MEDS: DOCUSATE SOD 100 MG CAP PO SCH ×2 (14:37→22:16)
[2021-03-27 17:00] VITALS: BP 108/65
[2021-03-27 22:00] VITALS: BP 96/57
[2021-03-28 01:15] LABS: Hematocrit 37.9 % (36.0-46.0); Hemoglobin 12.5 g/dL (12.2-16.2); Mean Corpuscular Hemoglobin 30.4 pg (28.0-32.0); Mean Corpuscular Hgb Conc. 32.9 g/dL (32.0-36.0); Mean Corpuscular Volume 92.5 fL (80.0-100.0); Red Cell Distribution Width 14.8 % (11.8-14.3); White Blood Cell 5.9 10^3/uL (4.4-10.8)
[2021-03-28 01:19] LABS: Basophils % (manual) 0 (0.0-2.0); Blast Cells 0; Metamyelocytes % 0; Promyelocytes % 0; Reactive Lymphocytes 0
[2021-03-28 01:58] LABS: Band Neutrophils % (manual) 9; Eosinophils % (manual) 1 (0-7); Lymphocytes % (manual) 31 (10.0-50.0); Monocytes % (manual) 6 (0-12); Myelocytes % 3
[2021-03-28] MEDS: VANCOMYCIN 1GM/250ML 250 ML IV SCH (02:40)
[2021-03-28 05:00] VITALS: BP 111/76
[2021-03-28] MEDS: PIPERACILLIN-TAZOB 3.375GM 100 ML IV SCH ×3 (06:45→23:30)
[2021-03-28] MEDS: HYDROmorphone HCL 2 MG/ML VL IV PRN ×4 (06:46→20:42)
[2021-03-28 09:00] VITALS: BP 105/65
[2021-03-28] MEDS: DOCUSATE SOD 100 MG CAP PO SCH ×2 (09:29→21:32)
[2021-03-28] MEDS: FLUCONAZOLE 100 MG TAB PO SCH (09:29)
[2021-03-28 13:00] VITALS: BP 97/58
[2021-03-28] MEDS: VANCOMYCIN 750mg/250ml 250 ML IV SCH (13:48)
[2021-03-28 16:43] VITALS: BP 90/45
[2021-03-28 22:00] VITALS: BP 91/61
[2021-03-29] MEDS: HYDROmorphone HCL 2 MG/ML VL IV PRN ×5 (00:46→20:37)
[2021-03-29] MEDS: VANCOMYCIN 750mg/250ml 250 ML IV SCH ×2 (02:19→14:54)
[2021-03-29 05:00] VITALS: BP 106/67
[2021-03-29] MEDS: PIPERACILLIN-TAZOB 3.375GM 100 ML IV SCH ×3 (06:39→23:04)
[2021-03-29 07:49] LABS: Basophils # (auto) 0.1 10 ^3/uL (0-0.2); Basophils % (auto) 1.5 % (0.0-2.0); Eosinophils # (auto) 0.1 10 ^3/uL (0-0.8); Eosinophils % (auto) 2.9 % (0.0-7.0); Hemoglobin 12.9 g/dL (12.2-16.2); Lymphocytes # (auto) 1.1 10 ^3/uL (0.4-5.4); Lymphocytes % (auto) 24.5 % (10.0-50.0); Mean Corpuscular Hemoglobin 29.8 pg (28.0-32.0); Mean Corpuscular Hgb Conc. 32.2 g/dL (32.0-36.0); Mean Corpuscular Volume 92.3 fL (80.0-100.0); Monocytes # (auto) 0.4 10 ^3/uL (0-1.3); Monocytes % (auto) 8.4 % (0.0-12.0); Neutrophils # (auto) 2.8 10 ^3/uL (1.6-8.6); Neutrophils % (auto) 62.7 % (37.0-80.0); Nucleated Red Blood Cells % 0.1 %; Red Blood Cells 4.33 10^6/uL (4.0-5.20); Red Cell Distribution Width 14.7 % (11.8-14.3); White Blood Cell 4.5 10^3/uL (4.4-10.8)
[2021-03-29 08:43] VITALS: BP 106/69
[2021-03-29] MEDS: DOCUSATE SOD 100 MG CAP PO SCH ×2 (10:18→20:38)
[2021-03-29] MEDS: FLUCONAZOLE 100 MG TAB PO SCH (10:18)
[2021-03-29 16:30] VITALS: BP 100/66
[2021-03-29 21:38] VITALS: BP 113/76
[2021-03-30] MEDS: HYDROmorphone HCL 2 MG/ML VL IV PRN ×4 (00:42→14:36)
[2021-03-30 05:06] LABS: RPR Non Reactive (Non Reactive)
[2021-03-30 05:30] VITALS: BP 111/65
[2021-03-30] MEDS: PIPERACILLIN-TAZOB 3.375GM 100 ML IV SCH (05:55)
[2021-03-30 08:00] VITALS: BP 100/65
[2021-03-30 08:30] VITALS: BP 118/64
[2021-03-30] MEDS: DOCUSATE SOD 100 MG CAP PO SCH (09:53)
[2021-03-30] MEDS: FLUCONAZOLE 100 MG TAB PO SCH (09:53)
[2021-03-30] MEDS ORDERED: FLUC200T35 PO (10:37)
[2021-03-30] MEDS ORDERED: DOCU-94 PO (10:37)
[2021-03-30] MEDS ORDERED: AMOX500T86 PO (10:37)
[2021-03-30] MEDS ORDERED: SACC250C PO (10:37)
[2021-03-30] MEDS ORDERED: AMOX-277 PO (10:44)
[2021-03-30] MEDS: ONDANSETRON HCL 4 MG/2 ML VIAL IV PRN (12:57)
[2021-03-30 14:13] VITALS: BP 98/60
[2021-03-30 15:34] VITALS: BP 104/66
[2021-03-30] MEDS ORDERED: AMOXICILLIN/CLAVUL 875 MG TAB PO SCH (22:00)
== END 2021-03-30 17:20 | disposition home or self-care (01) | DRG 803 ==
LOC: ER 11:07 → OVERFLOW 19:40 → CENTRAL 22:05
PROVIDERS: ADMIT Nurse Practitioner Acute Care; ATTEND Internal Medicine
PROC: 079H3ZX Drainage of Right Inguinal Lymphatic, Percutaneous Approach, Diagnostic (ICD-10-PCS; principal; 2021-03-26)
PROC: BW4GZZZ Ultrasonography of Pelvic Region (ICD-10-PCS; 2021-03-26)
DX: L04.9 Acute lymphadenitis, unspecified (principal); E44.0 Moderate protein-calorie malnutrition; L02.214 Cutaneous abscess of groin; E87.6 Hypokalemia; N76.0 Acute vaginitis; Z20.822 Contact with and (suspected) exposure to COVID-19; I10 Essential (primary) hypertension; K59.00 Constipation, unspecified; Z82.49 Family history of ischemic heart disease and other diseases of the circulatory system; Z82.5 Family history of asthma and other chronic lower respiratory diseases; Z83.3 Family history of diabetes mellitus; Z68.25 Body mass index [BMI] 25.0-25.9, adult; Z86.16 Personal history of COVID-19; Z87.01 Personal history of pneumonia (recurrent); Z87.442 Personal history of urinary calculi; Z98.84 Bariatric surgery status
CPT/HCPCS: 36415; 71046; 74177; 76881; 76942; 80048; 80053; 80202; 81001; 82565; 83605; 83735; 85007; 85025; 85027; 86592; 86703; 87040; 87086; 87205; 87426; 96361; 96365; 96375; 96376; G0378; J1956; J2405; J2543; J3490

== ENCOUNTER → 2021-05-09 | Day surgery (SDC) | payer OTHER ==
[2021-05-07 12:59] LABS: Basophils # (auto) 0 10 ^3/uL (0-0.2); Basophils % (auto) 0.7 % (0.0-2.0); Eosinophils # (auto) 0.1 10 ^3/uL (0-0.8); Eosinophils % (auto) 2.8 % (0.0-7.0); Hematocrit 39.4 % (36.0-46.0); Hemoglobin 12.7 g/dL (12.2-16.2); Lymphocytes # (auto) 1.1 10 ^3/uL (0.4-5.4); Lymphocytes % (auto) 32.7 % (10.0-50.0); Mean Corpuscular Hemoglobin 29.4 pg (28.0-32.0); Mean Corpuscular Hgb Conc. 32.1 g/dL (32.0-36.0); Mean Corpuscular Volume 91.4 fL (80.0-100.0); Monocytes # (auto) 0.3 10 ^3/uL (0-1.3); Monocytes % (auto) 8.2 % (0.0-12.0); Neutrophils # (auto) 1.9 10 ^3/uL (1.6-8.6); Neutrophils % (auto) 55.6 % (37.0-80.0); Red Blood Cells 4.31 10^6/uL (4.0-5.20); Red Cell Distribution Width 14.6 % (11.8-14.3); White Blood Cell 3.5 10^3/uL (4.4-10.8)
[2021-05-07 13:00] LABS: Urine Amorphous Crystal FEW /hpf (None Seen); Urine Bacteria FEW /hpf (None Seen); Urine Blood Negative /uL (Negative); Urine Mucus FEW (None Seen); Urine WBC 1 /hpf (0 - 5)
[2021-05-07 13:30] LABS: Potassium 4.2 mmol/L (3.5-5.1)
[2021-05-07 13:41] LABS: Albumin 3.3 g/dL (3.4-5.0); BUN/Creatinine Ratio 34.5; Bilirubin, Total 0.5 mg/dL (0.2-1.0); Calcium 9.1 mg/dL (8.5-10.1); Total Protein 7.6 g/dL (6.4-8.2)
[~2021-05-09] VITALS: Ht 160 cm; Wt 65.8 kg
[~2021-05-09] MED LIST changes: +AMOX-277 PO; +DOCU-94 PO; +FLUC200T35 PO; +HYDROmorphone HCL 2 MG/ML VL ONE; +KETOROLAC TROMETH 30 MG/ML 1ML VIAL ONE; +LIDOCAINE 2% (LOCAL ANESTH.) PF 5ml SDV ONE; +LIDOCAINE W/ EPINEPHRINE 1% 20ML VIAL ONE; +MIDAZOLAM HCL 2MG/2ML 2ml VIAL (1mg/ml) ONE; -OME20T PO; +ONDANSETRON HCL 4 MG/2 ML VIAL IV PRN; +ONDANSETRON HCL 4 MG/2 ML VIAL ONE; +PROPOFOL 10 MG/ML 20 ML IV ONE; +SACC250C PO; +ceFAZolin 1GM/50ML 100 ML IV ONE; +fentaNYL CITRATE 100 MCG/2 ML VL ONE
[2021-05-09] MEDS: HYDROmorphone HCL 2 MG/ML VL IV PRN ×4 (09:17→09:49)
[2021-05-09 10:30] VITALS: BP 132/51
== END | disposition home or self-care (01) ==
LOC: SUR 06:09
PROVIDERS: ATTEND Surgery
DX: R22.2 Localized swelling, mass and lump, trunk (principal); D64.9 Anemia, unspecified; I20.9 Angina pectoris, unspecified; K44.9 Diaphragmatic hernia without obstruction or gangrene; Z90.710 Acquired absence of both cervix and uterus; Z20.822 Contact with and (suspected) exposure to COVID-19; Z98.890 Other specified postprocedural states; Z79.899 Other long term (current) drug therapy
CPT/HCPCS: 36415; 38531; 80053; 81001; 85025; 88305; J0690; J1170; J1885; J2001; J2250; J2405; J2704; J3010; U0003

== ENCOUNTER 2021-11-30 06:08 | Day surgery (SDC) | payer OTHER ==
[2021-11-28 12:43] LABS: Basophils # (auto) 0 10 ^3/uL (0-0.2); Basophils % (auto) 1.1 % (0.0-2.0); Eosinophils # (auto) 0.1 10 ^3/uL (0-0.8); Eosinophils % (auto) 3.1 % (0.0-7.0); Hematocrit 42.2 % (36.0-46.0); Hemoglobin 14.2 g/dL (12.2-16.2); Lymphocytes # (auto) 1.2 10 ^3/uL (0.4-5.4); Mean Corpuscular Hemoglobin 29.9 pg (28.0-32.0); Mean Corpuscular Hgb Conc. 33.5 g/dL (32.0-36.0); Mean Corpuscular Volume 89.2 fL (80.0-100.0); Monocytes # (auto) 0.3 10 ^3/uL (0-1.3); Monocytes % (auto) 6.7 % (0.0-12.0); Neutrophils # (auto) 2.3 10 ^3/uL (1.6-8.6); Neutrophils % (auto) 59.1 % (37.0-80.0); Nucleated Red Blood Cells % 0.1 %; Red Blood Cells 4.73 10^6/uL (4.0-5.20); Red Cell Distribution Width 14.3 % (11.8-14.3); White Blood Cell 3.9 10^3/uL (4.4-10.8)
[2021-11-28 12:56] LABS: INR 1.05 (0.9-1.15); Partial Thromboplastin Time 25.1 sec (23.6-33.0)
[2021-11-28 13:05] LABS: Urine Bacteria NONE SEEN /hpf (None Seen); Urine Blood TRACE /uL (Negative); Urine Mucus FEW (None Seen); Urine WBC 13 /hpf (0 - 5)
[2021-11-28 15:00] LABS: Albumin 3.4 g/dL (3.4-5.0); BUN/Creatinine Ratio 18.2; Bilirubin, Total 0.4 mg/dL (0.2-1.0); Calcium 9.1 mg/dL (8.5-10.1); Potassium 4.9 mmol/L (3.5-5.1); Total Protein 7.8 g/dL (6.4-8.2)
[~2021-11-30] VITALS: Ht 160 cm; Wt 67.1 kg
[~2021-11-30 06:08] MED LIST changes: -AMOX-277 PO; -DOCU-94 PO; -FLUC200T35 PO; +HYDR1TAB97 PO; -HYDROmorphone HCL 2 MG/ML VL ONE; +IBUP800T26 PO; -KETOROLAC TROMETH 30 MG/ML 1ML VIAL ONE; -LIDOCAINE 2% (LOCAL ANESTH.) PF 5ml SDV ONE; -LIDOCAINE W/ EPINEPHRINE 1% 20ML VIAL ONE; -MIDAZOLAM HCL 2MG/2ML 2ml VIAL (1mg/ml) ONE; -ONDANSETRON HCL 4 MG/2 ML VIAL IV PRN; -ONDANSETRON HCL 4 MG/2 ML VIAL ONE; -PROPOFOL 10 MG/ML 20 ML IV ONE; -SACC250C PO; -ceFAZolin 1GM/50ML 100 ML IV ONE; -fentaNYL CITRATE 100 MCG/2 ML VL ONE
[2021-11-30] MEDS ORDERED: LIDOCAINE 1%HCL (LOCAL ANESTH) 10 ML MDV ONE (07:08)
[2021-11-30] MEDS ORDERED: BUPIVACAINE 0.25% INJ 50ML VIAL ONE (07:08)
[2021-11-30] MEDS ORDERED: ceFAZolin 1GM/50ML 100 ML IV ONE (07:10)
[2021-11-30] MEDS ORDERED: CEPH500C PO (07:21)
[2021-11-30] MEDS ORDERED: HYDR-4902 PO (07:21)
[2021-11-30] MEDS ORDERED: fentaNYL CITRATE 100 MCG/2 ML VL ONE ×2 (07:29→09:21)
[2021-11-30] MEDS ORDERED: MIDAZOLAM HCL 2MG/2ML 2ml VIAL (1mg/ml) ONE (07:30)
[2021-11-30] MEDS ORDERED: PROPOFOL 10 MG/ML 20 ML IV ONE (07:31)
[2021-11-30] MEDS ORDERED: LIDOCAINE 2% (LOCAL ANESTH.) PF 5ml SDV ONE (07:31)
[2021-11-30] MEDS ORDERED: ONDANSETRON HCL 4 MG/2 ML VIAL ONE ×2 (07:31→08:44)
[2021-11-30] MEDS ORDERED: ePHEDrine SULFATE 50 MG/ML AMP ONE (07:45)
[2021-11-30] MEDS ORDERED: HYDROmorphone HCL 2 MG/ML VL/or syr IV PRN (08:15)
[2021-11-30] MEDS: HYDROmorphone HCL 2 MG/ML VL/or syr IV PRN ×4 (08:44→09:14)
[2021-11-30] MEDS ORDERED: ONDANSETRON HCL 4 MG/2 ML VIAL IV PRN (09:00)
[2021-11-30] MEDS: fentaNYL CITRATE 100 MCG/2 ML VL IV PRN ×2 (09:22→09:32)
[2021-11-30 09:45] VITALS: BP 126/63
== END 2021-11-30 09:55 | disposition home or self-care (01) ==
LOC: SUR 06:08
PROVIDERS: ATTEND Student in an Organized Health Care Education/Training Program
DX: S92.351A Displaced fracture of fifth metatarsal bone, right foot, initial encounter for closed fracture (principal); E11.42 Type 2 diabetes mellitus with diabetic polyneuropathy; Z98.890 Other specified postprocedural states; Z79.899 Other long term (current) drug therapy; Z98.891 History of uterine scar from previous surgery; Z82.49 Family history of ischemic heart disease and other diseases of the circulatory system; Z83.3 Family history of diabetes mellitus; Z82.5 Family history of asthma and other chronic lower respiratory diseases; Z20.822 Contact with and (suspected) exposure to COVID-19; Y92.89 Other specified places as the place of occurrence of the external cause; Y93.89 Activity, other specified; Y99.8 Other external cause status
CPT/HCPCS: 28485; 36415; 73620; 76000; 80053; 81001; 85025; 85610; 85730; J0690; J1170; J2001; J2250; J2405; J2704; J3010; J3490; U0003